=== PATIENT | female | born 1970 | race Caucasian/White ===

== ENCOUNTER 2020-11-29 11:34 | Emergency (ER) | payer BC ==
[~2020-11-29] VITALS: Ht 162.6 cm; Wt 65.8 kg
--- NOTE | 2020-11-29 11:34 | NUR ---
PT BIB C/O CHEST HEAVINESS AFTER PFIZER VACCINE MONDAY NIGHT. PT IS AAOX4, NOT IN RESPIRATORY DISTRESS, HOOKED TO LEARNING AND DEVELOPMENT ANALYST, KEPT RESTED AND COMFORTABLE. WILL CONTINUE TO MONITOR.
--- NOTE | 2020-11-29 11:48 | NUR ---
ROB COUCH AT BEDSIDE FOR EKG
[2020-11-29] MEDS ORDERED: IV NS 0.9% 500 ML BAG IV ONE (12:00)
[2020-11-29] MEDS ORDERED: CT SWABBABLE VALVE TRANS SET 1 EA INFUS.SET MC ONE (12:39)
[2020-11-29] MEDS ORDERED: IV NS 0.9% 250 ML IV ONE (12:39)
[2020-11-29] MEDS ORDERED: IOHEXOL-350 100 ML VIAL IV ONE (12:39)
[2020-11-29 12:41] LABS: BASOPHILS # (AUTO) 0.1 /CMM (0.0-0.2); BASOPHILS % (AUTO) 0.7 % (0.0-2.0); EOSINOPHILS % (AUTO) 0.9 % (0.0-6.0); HEMATOCRIT 44 % (33-45); HEMOGLOBIN 14.6 g/dL (11.5-14.8); LYMPHOCYTES # (AUTO) 1.6 /CMM (0.8-4.8); LYMPHOCYTES % (AUTO) 17.6 % (20.0-44.0); MEAN CORPUSCULAR HGB CONC 34 g/dl (31.0-36.0); MEAN CORPUSCULAR VOLUME 92 fL (82-100); MONOCYTES # (AUTO) 0.8 /CMM (0.1-1.30); MONOCYTES % (AUTO) 8.5 % (2.0-12.0); NEUTROPHILS # (AUTO) 6.7 /CMM (1.8-8.9); NEUTROPHILS % (AUTO) 72.3 % (43.0-81.0); PLATELET COUNT (AUTO) 264 /CMM (150-450); RED BLOOD CELL COUNT(AUTO) 4.73 MIL/uL (4.0-5.2); WHITE BLOOD COUNT (AUTO) 9.3 K/uL (4.3-11.0)
[2020-11-29 12:56] LABS: CALCIUM, SERUM 9.1 mg/dL (8.5-10.1); CARBON DIOXIDE 23 mmol/L (21-32); CHLORIDE 102 mmol/L (98-107); CREATININE 0.7 mg/dL (0.6-1.3); GLUCOSE 88 mg/dL (74-106); POTASSIUM 3.7 mmol/L (3.5-5.1); SODIUM SERUM 139 mmol/L (136-145); UREA NITROGEN, BLOOD 14 mg/dL (7-18)
[2020-11-29 13:14] LABS: ALANINE AMINOTRANSFERASE 21 U/L (12-78); ALBUMIN 3.8 g/dL (3.4-5.0); ALKALINE PHOSPHATASE 37 U/L (46-116); ASPARTATE AMINOTRANSFERASE 16 U/L (15-37); BILIRUBIN,DIRECT 0.1 mg/dL (0.0-0.2); BILIRUBIN,TOTAL 0.5 mg/dL (0.2-1.0); NT-PRO BNP 87 pg/mL (0-125); TOTAL PROTEIN, SERUM 7.4 g/dL (6.4-8.2)
--- NOTE | 2020-11-29 15:55 | NUR ---
IV removed. Catheter intact and site benign. Pressure and 4x4 applied to site. No bleeding noted. Patient discharged to home in stable condition. Written and verbal after care instructions given. Patient verbalizes understanding of instruction.
[2020-11-29 15:57] VITALS: BP 128/82
== END 2020-11-29 15:57 | disposition home or self-care (01) ==
LOC: ER 11:42
DX: R07.89 Other chest pain (principal); Z98.890 Other specified postprocedural states; Z88.1 Allergy status to other antibiotic agents
CPT/HCPCS: 36415; 71045; 71275; 80048; 80076; 83880; 84484; 85025; 85730; 93005 ×3; 99285; J7040; J7050; Q9967